=== PATIENT | male | born 1940 | race Caucasian/White ===

== ENCOUNTER → 2016-10-19 | Outpatient (CLI) | payer MEDICARE ==
[~2016-10-19] MED LIST: ASPIRIN 325MG325 MG PO; CALAMINE LOTIO177 ML TP; FAMVIR250 MG PO; FLOMAX 0.4MG C0.4 MG PO; GLIPIZIDE 5MG TA5 MG PO; IMODIUM MULTI-S1 TAB PO; LANSOPRAZOLE30 MG PO; LEVAQUIN500 MG PO; LOSARTAN POTASS50 MG PO; METFORMIN HCL850 MG PO; SIMVASTATIN40 MG PO; ZOFRAN ODT8 M1 PO
--- NOTE | 2016-10-20 14:08 | RADIOLOGY REPORT PS360 ---
CT ABD PELVIS W/O CONTRAST CLINICAL INDICATION: HEMATURIA ORDERING PHYSICIAN: Darrion Lock MD PATIENT AGE: 76 years COMPARISON: 07/09/2014 TECHNIQUE: Axial images obtained with sagittal and coronal reformats. PROCEDURE: Oral Contrast: None IV Contrast: None . FINDINGS: The liver, spleen, and adrenal glands have an unremarkable unenhanced CT appearance. Multiple gallstones are present. No renal calculi or hydronephrosis. There is mild stranding of the perinephric renal fat bilaterally nonspecific and not significantly changed. No obvious renal mass. The urinary bladder has an unremarkable appearance. Radiation implants are present within the prostate. No intestinal obstruction or free air.. There is a small left inguinal hernia containing fat. There is an old left pubic fracture IMPRESSION: 1. No renal calculi or hydronephrosis. Unremarkable appearing urinary bladder. 2. Prostate seed implants present. Prostate is slightly smaller than when compared to the previous exam. 3. Gallstones
== END ==
LOC: RAD 13:34
DX: R31.9 Hematuria, unspecified (principal)

== ENCOUNTER → 2016-11-04 | Outpatient (CLI) | payer MEDICARE ==
[2016-11-05 08:47] LABS: Creatinine, Urine 219.4 mg/dL (Not Estab.); Microalbumin, Urine 201.8 ug/mL (Not Estab.)
== END ==
LOC: CARL-LAB 08:18
PROVIDERS: Physician Assistant
DX: E78.5 Hyperlipidemia, unspecified (principal); E11.9 Type 2 diabetes mellitus without complications